=== PATIENT | female | born 1965 | race African-American/Black ===

== ENCOUNTER 2021-04-14 10:13 | Emergency (ER) | payer BC ==
[~2021-04-14] VITALS: Ht 165.1 cm; Wt 90.7 kg
--- NOTE | ~2021-04-14 | HC ---
[facility] [place] [address] CONSULTATION Name: ALYX FLETCHER [id number]: 04/14/21 Attend Phys: Discharge: 04/14/21 Date of : 63 Report #: [id number] THIS REPORT FOR: cc: Lucas Morales Louis D. DO Dunfield, Jay A. MD ~ DATE OF SERVICE: 04/14/2021 NEUROLOGY CONSULTATION REASON FOR ER CONSULTATION: Uncontrolled bilateral epistaxis. HISTORY OF PRESENT ILLNESS: The patient is a 55-year-old female who had turbinate reduction and removal of nasal lesions by Dr. Rodolfo Cast on 03/26/2021 in an office setting. She was seen last week in the office by the physician chemical laboratory assistant, Jael Wolff and debridement was performed and everything apparently was doing well. Upon awakening this morning, she noted bleeding from the left naris. By the time, she presented to the [facility], there was bleeding from both nares as well as down the back of the throat. The Emergency Room physicians attempted the use of 5.5 Rhino Rockets bilaterally, which initially helped to control the bleeding, but it persisted posteriorly. This was repositioned multiple times, 3 on the left side. They also tried some intranasal cocaine and Afrin without any help. She was never hemodynamically unstable; however, they were asked for consultation from ENT services. MEDICATIONS: Reviewed and include amitriptyline, diclofenac, Skelaxin, and Tylenol. She has recently been on pain medications as well. PAST MEDICAL AND SURGICAL HISTORY: Notable for extraction of wisdom teeth, the above-mentioned nasal surgery, history of depression, anxiety, and migraines. PHYSICAL EXAMINATION: This is accomplished in the ER bay. The patient is alert and oriented, sitting upright in bed. She had a Rhino Rocket present in each naris. There was no bleeding coming out of the anterior nares. She does not appear in discomfort. Visualization of the oral cavity showed normal-appearing mucosa. There is no active bleeding in the nasopharynx at the initial examination. Please see procedure note for treatment of the epistaxis. ASSESSMENT: Anterior epistaxis bilaterally, worse left than right. PLAN: After obtaining stabilization of epistaxis, she was discharged to home care where she is instructed to use Afrin today and start using saline spray on a frequent basis over the next week. Follow up with Dr. Rodolfo Cast on Sunday [address] [address] CONSULTATION Name: ALYX FLETCHER Room #: DEP [facility]#: [id number] Admission: 04/14/21 Attend Phys: Discharge: 04/14/21 Date of : 63 Report #: [id number] or Sunday in clinic. She voiced understanding. PROCEDURE NOTE: Control of anterior epistaxis complex, bilateral. The right side was first addressed by deflating the right 5.5 mm Rhino Rocket and removing this. Moderate blood clots were noted in the nares and were suctioned away. There was no brisk bleeding, but gentle oozing noted from the inferior turbinate as well as anterior septal wall. Cottonoid soaked with Afrin and tetracaine were applied to the side on multiple passes, which controlled the oozing. Inspection revealed small right anterior septal tear, likely from placement of the recent pack. The medial wall of the inferior turbinate was friable and roughened and gently oozing throughout, mostly in the anterior half. There is a small tear in the mucosa on the anterior tip of the middle turbinate on the right side. I addressed these by placing Surgicel in the layered fashion over the turbinate and the septum. I then gently applied a little bit of Afrin nasal spray as well. After observing for approximately 15 minutes, there is no active bleeding on this side and the nasopharynx remained dry. I then addressed the left side first by deflating the nasal balloon and observing no increased posterior nasopharyngeal bleeding by doing so. I then removed the balloon and vacuum large number of clots from the posterior nares. No brisk bleeding was noted, but there was significant oozing from the inferior turbinate on its medial and medial inferior edges and there was an abrasion on the inferior aspect of the anterior portion of the middle turbinate as well. This was controlled by the application of cottonoids with Afrin soaked and placed liberally on the left side and left for approximately 5-10 minutes. Upon removal, there is no active bleeding in any of the areas. We then placed several pieces of Surgicel over the raw surfaces of the inferior turbinate and the inferior aspect of the middle turbinate. Once again, I observed these for approximately 10 minutes and there was no bleeding noted in the nares. There is no bleeding in the nasopharynx or oropharynx at that time. By: 1839 [id number] Wellington Gallegos MD /berenice
[~2021-04-14 10:13] MED LIST: IBUPROFEN 200200 M1 PO; NAPROXEN 500MG500 M1 PO; NOHOMEMEDICATIONS; PERCOCET 5-3251 EACH PO; PROPOXY-N/APAP1 TAB PO; SKELAXIN 800 M800 M1 PO; TYLENOL325 MG PO
[2021-04-14 10:45] LABS: ABSOLUTE NEUTROPHILS 3.3 thou/uL (1.4-8.2); BASOPHILS 1.1 % (0.0-2.0); EOSINOPHILS 3.9 % (0.0-3.0); HEMATOCRIT 39.6 % (37.0-47.0); HEMOGLOBIN 13.3 gm/dL (12.0-15.0); LYMPHOCYTES 29.1 % (24.0-44.0); MCH 30.6 pg (26.0-34.0); MCHC 33.6 g/dL (28.0-37.0); MCV 90.8 fL (80.0-100.0); MONOCYTES 9.4 % (1.0-8.0); PLATELET COUNT 523 thou/uL (150-400); POLYS 56.5 % (36.0-66.0); RBC 4.36 mil/uL (4.20-5.00); WBC 5.9 thou/uL (4.0-11.0)
[2021-04-14 11:20] LABS: CALCIUM 9.7 mg/dL (8.5-10.1); POTASSIUM 3.9 mmol/L (3.5-5.1)
[2021-04-14 11:25] LABS: ALBUMIN 3.7 g/dL (3.4-5.0); TOTAL BILIRUBIN 0.5 mg/dL (0.2-1.0); TOTAL PROTEIN 8.7 g/dL (6.4-8.2)
[2021-04-14 11:29] LABS: INR 0.92; PROTIME 10.1 Seconds (10.5-12.1)
--- NOTE | 2021-04-14 13:19 | EKG ---
[place] [address] [facility] [employer] [place] [address] ELECTROCARDIOGRAM REPORT Name: ALYX FLETCHER Room #: [facility]#: [id number] Admission: 04/14/21 Attend Phys: Discharge: Date of : 63 Report #: [id number] [facility] ED Test Date: 2021-04-14 Test Time: 11:01:49 Pat Name: ALYX FLETCHER Department: Room: Gender: F Flasher Adjuster: MARYCHUY : 1965 Requested By: Minnie Celaya Order Number: [id number] MD: Josh Drummond Measurements Intervals [place] Rate: 85 P: 30 MS: 152 QRS: 20 QRSD: 78 T: 191 QT: 352 QTc: 419 Interpretive Statements Sinus rhythm Borderline repolarization abnormality Baseline wander in lead(s) II,III,aVF Compared to ECG 09/08/2014 00:26:51 T-wave abnormality no longer present Electronically Signed On 04-14-2021 13:19:24 CDT by Josh Drummond [email or web address] <ELECTRONICALLY SIGNED> By: Josh Drummond MD, [facility] 04/14/21 1319 1100 00 Josh Drummond MD, FACC /EPI
[2021-04-14 13:39] VITALS: BP 135/96
== END 2021-04-14 13:39 | disposition home or self-care (01) ==
LOC: ER 10:13
PROVIDERS: Emergency Medicine
DX: R04.0 Epistaxis (principal); I10 Essential (primary) hypertension; G43.909 Migraine, unspecified, not intractable, without status migrainosus; Z79.891 Long term (current) use of opiate analgesic; Z79.899 Other long term (current) drug therapy; Z88.6 Allergy status to analgesic agent; Z88.2 Allergy status to sulfonamides